=== PATIENT | male | born 1955 | race Caucasian/White ===

== ENCOUNTER 2020-04-15 10:41 | Outpatient (CLI) | payer OTHER ==
--- NOTE | 2020-04-15 11:13 | XRAY Report ---
PROCEDURE: Chest 2 View X-Ray INDICATIONS: ABNORMAL BREATH SOUNDS TECHNIQUE: 2 view(s) of the chest. COMPARISON: None. FINDINGS: Surgical changes and devices: None. Lungs and pleura: No pleural effusions or pneumothorax. Lungs are clear. Mediastinum: Mediastinal contours are normal. Heart size is normal. Bones and chest wall: No suspicious bony abnormalities. Age-appropriate degenerative changes are se en. There is accentuated thoracic kyphosis. Soft tissues appear unremarkable. IMPRESSION: Clear lungs, without infiltrates. Reviewed by: Pedro Pelaez MD on 04/15/2020 10:12 AM [facility] Approved by: Pedro Pelaez MD on 04/15/2020 10:12 AM [facility] Station ID: [id number]
--- NOTE | 2020-04-15 11:21 | CT Report ---
PROCEDURE: Sinuses INDICATIONS: CHRONIC SINUSITIS, ABN BREATH SOUNDS TECHNIQUE: Noncontrast 3.0 mm axial images acquired from the frontal sinuses to the mid-sella, with coronal and sagittal reformats. For radiation dose reduction, the following was used: automated exposure control , adjustment of mA and/or kV according to patient size. COMPARISON: None. FINDINGS: Image quality: Excellent. Maxillary Sinuses: No bony remodeling or destruction. Sinuses are clear. Ethmoid Air Cells: No bony remodeling or destruction. Sinuses are clear. Sphenoid Sinuses: No bony remodeling or destruction. Sinuses are clear. Frontal Sinuses: No bony remodeling or destruction. Sinuses are clear. Ostiomeatal Complexes: Ostiomeatal complexes are patent, yet they are constitutionally narrowed. No Jsutina cells. Miscellaneous: Visualized intra-orbital contents are normal. No pauline bullosa. There is S-shaped l eftward nasal septal deviation. IMPRESSION: No significant active paranasal sinus disease is seen. Incidental note is made of: Patent, yet constitutionally narrowed osteochondral complexes Minimal S-shaped nasal septal deviation Reviewed by: Pedro Pelaez MD on 04/15/2020 10:20 AM [facility] Approved by: Pedro Pelaez MD on 04/15/2020 10:20 AM [facility] Station ID: [id number]
== END 2020-04-15 10:42 | disposition home or self-care (01) ==
LOC: DI 10:41
PROVIDERS: ATTEND Internal Medicine
DX: R09.89 Other specified symptoms and signs involving the circulatory and respiratory systems (principal); J32.9 Chronic sinusitis, unspecified; J34.2 Deviated nasal septum
CPT/HCPCS: 70486; 71046